=== PATIENT | male | born 1960 | race Caucasian/White ===

== ENCOUNTER 2024-04-30 14:44 | Emergency (ER) | payer SELFPAY ==
[2024-04-30 14:44] VITALS: BP 166/79; PULSE 75; RESP 17; TEMP 37; O2SAT 96
--- NOTE | 2024-04-30 15:01 | ED.WOUNDLAC ---
HPI - Wound/Laceration General Chief Complaint: Wound/Laceration Stated Complaint: splinter in finger Time Seen by Provider: 04/30/24 14:49 Source: patient Mode of arrival: ambulatory Limitations: no limitations History of Present Illness HPI narrative: Patient is 60-year-old male with no significant past medical history presents today with a infected finger. He has an infected left 2nd metacarpal he says this started off his plantar flap continued worse. He was picking had an IQ clean now looks very infected. It is erythematous the skin is sloughing off. Denies any numbness tingling. He says has been going on for about 5 days now. Onset (ago): day(s) Extremity Location: Left: hand ( Second metacarpal) Place: home Patient tetanus UTD: Yes Context: accidental Associated symptoms: pain Treatments prior to arrival: bandage Related Data Allergies Allergy/AdvReac Type Severity Reaction Status Date / Time No Known Allergies Allergy Verified 04/30/24 14:51 Review of Systems Review of Systems: All systems reviewed & are unremarkable except as noted in HPI and below Constitutional: Constitutional: Reports as per HPI Eyes: Eyes: Reports as per HPI ENT: Reports system reviewed and no additional complaints, except as documented Cardiovascular: Cardiovascular: Reports as per HPI Respiratory: Respiratory: Reports as per HPI Gastrointestinal: Gastrointestinal: Reports as per HPI Genitourinary: Genitourinary: Reports no additional male genitourinary complaints Musculoskeletal: Musculoskeletal: Reports no additional musculoskeletal complaints Integumentary/Breasts: Skin/Breast: Reports as per HPI Comments: sloughing of the skin on 2nd left metacarpal Neurologic: Reports system reviewed and no additional complaints, except as documented Psychiatric: Psychiatric: Reports no additional psychiatric complaints Endocrine: Endocrine: Reports no additional endocrine complaints Hematologic/Lymphatic: Hematologic/Lymphatic: Reports no additional hematologic/lymphatic complaints Allergic/Immunologic: Allergic/Immunologic: Reports no additional allergic/immunologic complaints Exam Const: General: healthy appearing Nutritional Appearance: well nourished Orientation/consciousness: patient oriented x3 HENMT: Head: normal to inspection Ears: external ears normal Face/Nose/Sinus: Normal external nose present Eyes: Conjunctivae: conjunctivae normal Pupils: Equal, round and reactive pupils present EOM: EOMs intact bilaterally Neck: Neck: normal visual inspection Chest: Chest palpation & inspection: normal inspection of the chest Resp: Effort & Inspection: normal respiratory effort Auscultation: clear to auscultation bilaterally Cardio: Rate: regular rate Rhythm: regular rhythm GI: GI Palp: Yes Soft to palpation Back/Spine/Pelvis: Back: no CVA tenderness Skin: Rashes: no rashes Wounds: wounds noted (Skin sloughing on 2nd left metacarpal ) Neuro: General: patient oriented x3 Cranial nerves: Yes Nystagmus not present Speech: normal speech Extrem: General: normal to inspection Psych: Mental Status: mental status grossly normal Affect: normal affect Course Vital Signs Vital signs: Vital Signs Temperature 98.6 F 04/30/24 14:44 Pulse Rate 75 04/30/24 14:44 Respiratory Rate 17 04/30/24 14:44 Blood Pressure 166/79 H 04/30/24 14:44 Pulse Oximetry 96 04/30/24 14:44 Oxygen Delivery Room Air 04/30/24 14:44 Temperature 98.6 F 04/30/24 14:44 Pulse Rate 75 04/30/24 14:44 Respiratory Rate 17 04/30/24 14:44 Blood Pressure 166/79 H 04/30/24 14:44 Pulse Oximetry 96 04/30/24 14:44 Oxygen Delivery Room Air 04/30/24 14:44 MDM - Wound/Laceration MDM Narrative Medical decision making narrative: patient's 2nd left metacarpal is definitely infected in the skin sloughing off. Bruise with some prune drainage from the middle of the wound. Will need to debride the
[2024-04-30] MEDS: DOXYCYCLINE HYCLATE 100 MG TABLET PO (15:03)
[2024-04-30 15:29] VITALS: BP 166/79; PULSE 75; RESP 17; TEMP 37; O2SAT 96
== END 2024-04-30 15:29 | disposition home or self-care (01) ==
LOC: CHSED 15:23
PROVIDERS: Emergency Provider Family Medicine
DX: S61.231A Puncture wound without foreign body of left index finger without damage to nail, initial encounter (principal); W45.8XXA Other foreign body or object entering through skin, initial encounter
CPT/HCPCS: 99283; A9270